=== PATIENT | male | born 1995 | race Caucasian/White ===

== ENCOUNTER → 2018-11-27 | Outpatient (CLI) | payer BC ==
--- NOTE | 2018-11-27 09:54 | CT ---
EXAMINATION TYPE: CT chest w con DATE OF EXAM: 11/27/2018 COMPARISON: None HISTORY: 23-year-old male with pain, Contusion of chest TECHNIQUE: Contiguous axial scanning of the chest after the administration of 100 ml mL of Isovue 300 . Coronal/sagittal reconstructions performed. CT DLP: 579mGycm. Automatic exposure control utilized for a dose reduction. FINDINGS: Heart normal size without pericardial effusion. Aorta normal caliber with conventional branching anatomy. No evidence for aortic dissection. Some mild residual thymic tissue is present. No mediastinal hematoma or thoracic lymphadenopathy. No consolidation, pneumothorax, or pleural effusion. There is mild reticular densities within the subcutaneous fat of the anterior lower thorax, right gre ater than left, refer to axial image 44. Visualized upper abdomen shows no gross abnormality. Bones: Small inferior T11 endplate Schmorl's node. No osseous destructive process. IMPRESSION: 1. Some mild subcutaneous fat stranding anterior lower thorax may correspond to the contusion describ ed in the patient's history. 2. No underlying acute pulmonary process or vascular injury.
== END ==
LOC: RADCTMAIN 09:03
PROVIDERS: ATTEND Family Medicine
DX: E65 Localized adiposity (principal); S20.211A Contusion of right front wall of thorax, initial encounter
CPT/HCPCS: 71260; Q9967

== ENCOUNTER 2020-01-22 18:26 | Emergency (ER) | payer BC ==
[2020-01-22] MEDS ORDERED: DIAZEPAM 5 MG TAB PO STA (19:00)
--- NOTE | 2020-01-22 19:04 | ED ---
General Adult HPI - General Chief complaint: Chest Pain Stated complaint: chest pain Time Seen by Provider: 01/22/20 18:30 Source: patient, RN notes reviewed, old records reviewed Mode of arrival: ambulatory Limitations: no limitations - History of Present Illness Initial comments: This is a 24-year-old male who presents emergency Department stating he's been really stressed this week with a new job. Patient states also on probation. Patient comes in today stating he has had some chest tightness tick on the left side. Patient states she's also been a little bit short of breath but it comes and goes as does the chest pain. Patient states exertion does not seem to make it worse. Patient states he also gets a lot of tingling in his fingers and a little lightheaded when this occurs. Patient states he does have a little anxiety disorder it could be related to that. Patient denies any recent fever chills or cough. Patient denies any palpitation. Patient denies any abdominal pain patient denies nausea vomiting diarrhea. Patient denies headache patient denies numbness weakness - Related Data Allergies Allergy/AdvReac Type Severity Reaction Status Date / Time No Known Allergies Allergy Verified 01/22/20 18:34 Review of Systems ROS Statement: Those systems with pertinent positive or pertinent negative responses have been documented in the HPI. ROS Other: All systems not noted in ROS Statement are negative. Past Medical History Past Medical History: No Reported History History of Any Multi-Drug Resistant Organisms: None Reported Past Surgical History: No Surgical Hx Reported Past Psychological History: No Psychological Hx Reported Smoking Status: Never smoker Past Alcohol Use History: None Reported Past Drug Use History: None Reported General Exam - General Exam Comments Initial Comments: GENERAL: Patient is well-developed and well-nourished. Patient is nontoxic and well- hydrated and is in no acute distress. ENT: Neck is soft and supple. No significant lymphadenopathy is noted. Oropharynx is clear. Moist mucous membranes. Neck has full range of motion without eliciting any pain. EYES: The sclera were anicteric and conjunctiva were pink and moist. Extraocular movements were intact and pupils were equal round and reactive to light. Eyelids were unremarkable. PULMONARY: Unlabored respirations. Good breath sounds bilaterally. No audible rales rhonchi or wheezing was noted. CARDIOVASCULAR: There is a regular rate and rhythm without any murmurs gallops or rubs. ABDOMEN: Soft and nontender with normal bowel sounds. SKIN: Skin is clear with no lesions or rashes and otherwise unremarkable. NEUROLOGIC: Patient is alert and oriented x3. Cranial nerves II through XII are grossly intact. Motor and sensory are also intact. Normal speech, volume and content. Symmetrical smile. MUSCULOSKELETAL: Normal extremities with adequate strength and full range of motion. LYMPHATICS: No significant lymphadenopathy is noted PSYCHIATRIC: Patient appears very anxious Limitations: no limitations Course Vital Signs 01/22/20 18:31 Temperature 98.2 F Pulse Rate 92 Respiratory 18 Rate Blood Pressure 141/84 O2 Sat by Pulse 100 Oximetry Medical Decision Making - Medical Decision Making EKG shows normal sinus rhythm at 69 bpm [place] interval is 172 QRS is 96 QT interval 358 QTC is 383. Patient's EKG shows no ST segment elevation or depression. Chest x-ray shows no acute abnormality. Patient received some Valium and I went back into the room to reevaluate the patient he was much calmer much more relaxed and he stated he felt much better. Disposition Clinical Impression: Anxiety Disposition: HOME SELF-CARE Condition: Good Instructions (If sedation given, give patient instructions): Anxiety (ED), Chest Pain (ED) Is patient prescribed a controlled substance at d/c from ED?: No Referrals: Nicolas Goncalves MD [Primary Care Provider] - 1-2 days Time of Disposition: 19:43
--- NOTE | 2020-01-22 19:26 | XR ---
EXAMINATION TYPE: XR chest 2V DATE OF EXAM: 01/22/2020 COMPARISON: CT chest 11/27/2018 HISTORY: Difficulty breathing, chest pain TECHNIQUE: Frontal and lateral views of the chest are obtained. FINDINGS: There is no focal air space opacity, pleural effusion, or pneumothorax seen. The cardiac silhouette size is within normal limits. The osseous structures are intact. There are overlying car diac leads. IMPRESSION: No acute cardiopulmonary process.
[2020-01-22 20:04] VITALS: BP 118/78; PULSE 66; RESP 16; TEMP 97.4
== END 2020-01-22 20:03 | disposition home or self-care (01) ==
LOC: EC 18:26
DX: F41.9 Anxiety disorder, unspecified (principal)
CPT/HCPCS: 71046; 99285

== ENCOUNTER → 2022-08-07 | Outpatient (CLI) | payer BC ==
--- NOTE | 2022-08-07 16:31 | CT ---
EXAMINATION TYPE: CT abdomen pelvis wo con DATE OF EXAM: 08/07/2022 COMPARISON: None HISTORY: RLQ PAIN. no contrast. CT DLP: DLP 826.50. mGycm Examination of the solid and hollow viscera is limited given the lack of contrast. FINDINGS: LUNG BASES: No evidence for nodule. No evidence for infiltrate. LIVER/GB: The gallbladder is unremarkable. No space-occupying hepatic lesion. PANCREAS: No pancreatic mass identified. No inflammatory process seen. SPLEEN: No evidence for splenomegaly. No intrasplenic lesions seen. ADRENALS: No adrenal nodules identified. No evidence for thickening. KIDNEYS: No evidence for renal mass. No nephrolithiasis. No hydronephrosis. BOWEL: Appendix has a normal appearance. No evidence of bowel obstruction. No inflammatory process. Lymph nodes: No evidence for adenopathy greater than 1 cm. Abdominal aorta: Atheromatous changes seen. No evidence for aneurysm. Genital organs: No significant abnormality. Other: No significant abnormality. IMPRESSION: NO ACUTE PROCESS SEEN.
[2022-08-08 01:20] LABS: Basophils # (A) 0.11 X 10*3/uL (0.00-0.10); Basophils % (A) 1.1 %; Eosinophils # (A) 0.28 X 10*3/uL (0.04-0.35); Eosinophils % (A) 2.7 %; HCT 50.4 % (39.6-50.0); HGB 17.1 g/dL (13.0-17.0); Immature Grans, Automated 0.2 %; Lymphocytes # (A) 2.14 X 10*3/uL (0.90-5.00); Lymphocytes % (A) 20.5 %; MCH 30.9 pg (27.0-32.0); MCHC 33.9 g/dL (32.0-37.0); MCV 91.1 fL (80.0-97.0); Mean Platelet Volume 10.3 fL (9.5-12.2); Monocytes # (A) 0.61 X 10*3/uL (0.20-1.00); Monocytes % (A) 5.9 %; NRBC Per 100 WBC 0 /100 WBCS (0.0-0.0); Neutrophils # (A) 7.26 X 10*3/uL (1.80-7.70); Neutrophils % (A) 69.6 %; Platelet Count 303 X 10*3/uL (140-440); RBC 5.53 X 10*6/uL (4.40-5.60); RDW 12.2 % (11.5-14.5); WBC 10.42 X 10*3/uL (4.50-10.00)
[2022-08-08 02:21] LABS: Erythrocyte Sedimentation Rate 2 mm/Hr (0-15)
[2022-08-08 03:36] LABS: ALT 44 U/L (10-49); AST 23 U/L (14-35); African American GFR (CKD) 111.4 (60.0-200.0); Albumin 4.8 g/dL (3.8-4.9); Albumin/Globulin Ratio 2.03 (1.60-3.17); Alkaline Phosphatase 74 U/L (41-126); BUN/Creat Ratio 10.57 Ratio (12.00-20.00); Blood Urea Nitrogen 11.1 mg/dL (9.0-27.0); C Reactive Protein <0.30 mg/dL (0.00-0.80); Carbon Dioxide 25.6 mmol/L (20.0-27.5); Chloride 100 mmol/L (96-109); Globulin 2.4 g/dL (1.6-3.3); Glucose 92 mg/dL (70-110); Non-African American GFR(CKD) 96.1 (60.0-200.0); Potassium 4.1 mmol/L (3.5-5.5); Sodium 139 mmol/L (135-145); Total Protein 7.2 g/dL (6.2-8.2)
== END | disposition home or self-care (01) ==
LOC: RADCTMAIN 16:02
PROVIDERS: ATTEND Family Medicine
DX: R10.31 Right lower quadrant pain (principal)
CPT/HCPCS: 74176; 80053; 85025; 85652; 86140